=== PATIENT | male | born 1985 | race Caucasian/White ===

== ENCOUNTER 2019-11-12 07:51 | Observation (INO) | payer OTHER, SELFPAY ==
[2019-11-12] VITALS (11 sets, daily range): BP systolic 103–152; BP diastolic 44–92; PULSE 76–106; RESP 14–18; TEMP 36.5–37.1; O2SAT 92–100; BMI 47.7; BMI 47.8
--- NOTE | 2019-11-12 08:03 | CT_ITS ---
We are attempting to reach an attending provider to discuss findings. An addendum with communication details will be sent when the communication is complete. STUDY: CT ABDOMEN AND PELVIS WITHOUT CONTRAST REASON FOR EXAM: Male, 34 years old. Abdominal pain since last night, ? appy RADIATION DOSAGE (If Supplied By Facility): CTDIvol = ( 29.07 ) mGy, DLP = ( 1957.26 ) mGycm TECHNIQUE: Transaxial images were obtained from the dome of the diaphragm to the symphysis pubis without oral contrast, and without intravenous contrast. Sagittal and coronal images were reconstructed. Individualized dose optimization techniques were used for this CT. COMPARISON: None. FINDINGS: Lung bases: Unremarkable. Heart: Unremarkable. Liver: Hepatic steatosis. No focal hepatic lesions given noncontrast technique. Gallbladder/biliary ducts: Unremarkable. Pancreas: Unremarkable. Spleen: Unremarkable. Adrenal glands: Unremarkable. Kidneys/ureters/bladder: Unremarkable. Prostate: Punctate prostate calcifications. Large bowel/small bowel: Unremarkable. Appendix: Acute inflammatory changes at the appendix tip with small appendicolith measuring 5 mm (axial images 85 through 90 series 2). The appendix measures up to 1.1 cm. No perforation. No abscess. Gastroesophageal junction/stomach: Unremarkable. Retroperitoneum/lymph nodes: No intra-abdominal free air. No ascites. No pathologically enlarged lymph nodes. Vascular: Unremarkable. Osseous structures: Minimal degenerative features. No acute process. Subcutaneous/soft tissues: Bilateral fat-containing uncomplicated inguinal hernias. Tiny fat-containing umbilical hernia. No acute process. CT/Abdomen/Pelvis W IV Cont ONLY IMPRESSION: Acute unruptured appendicitis with 5 mm appendicolith Nonemergent findings, as above Electronically Signed: Kobe Fregoso DO at 9:20 EDT Tel , Service support ,
--- NOTE | 2019-11-12 08:04 | ED.DCSUM_ITS ---
History of Present Illness Chief Complaint: Abd Pain Informant: Patient Onset: Yesterday Context: Gradual Onset Timing: Continuous Current Severity: Moderate Maximum Severity: Severe Narrative: The patient is an otherwise healthy 34-year-old male who presents to the emergency department abdominal pain. The patient states his pain began last night. Describes it as bandlike across his lower abdomen. He states it is worsened and is slowly migrated to his right lower quadrant. He denies fever, but does admit to some generalized malaise. He does describe lack of appetite and mild nausea. He thought that if he had a bowel movement it would improve his pain. He states it did not. He is never had pain like this before. He denies any history of prior abdominal surgery. He is otherwise been in his normal state of health. Prior similar symptoms: No Recent Illness/Hospitalization: No Past Medical History - Allergies and Home Meds Allergies/Adverse Reactions: Allergies No Known Allergies Allergy (Verified 11/12/19 07:52) Primary Care Physician: Neema Maynard,Out of [Primary Care Provider] - Prior records reviewed: Yes Past Medical History: None Surgical History: no surgical history Smoking Status: Never smoker Review of Systems General: Reports: Malaise. Denies: Chills, Fever, Sweats Eyes: Denies: Visual changes - bilaterally, Diplopia ENT: Denies: Rhinorrhea, Sore throat Cardiovascular: Denies: Chest pain, Palpitations Respiratory: Denies: Dyspnea, Cough, Dyspnea on exertion Gastrointestinal: Reports: Abdominal pain, Nausea. Denies: Vomiting, Diarrhea, Melena, Hematochezia Genitourinary: Denies: Dysuria, Hematuria, Frequency Musculoskeletal: Denies: Back pain, Extremity Pain Skin: Denies: Rash, Wounds Neurological: Denies: Headache, Weakness, Numbness Physical Exam Vital Signs/Narrative: Vital Signs Temp Pulse Resp BP Pulse Ox 11/12/19 07:53 98.6 F 106 H 17 152/92 H 97 Inital Vital Signs reviewed: Yes General: Well nourished, Well developed, No Acute Distress Head: Normocephalic, Atraumatic Eyes: Perrl, EOMI ENT: Moist mucous membranes, No rhinorrhea Neck: Supple, Nontender Cardiovascular: Regular rate, Regular rhythm, No murmurs Respiratory: No distress, CTA bilaterally, Chest nontender Abdomen: Soft, Nontender, Nondistended, Normal bowel sounds Back: Nontender, Normal Inspection Extremities: Nontender, No edema Skin: Normal color, No rash Neurological: Alert, Oriented x3, Cranial nerves II-XII grossly intact, Normal Strength, Normal Sensation Psychological: Normal affect, Normal Mood Diagnostic/Tx/Re-eval Clinical Impression(s) from Imaging Studies Abdomen/Pelvis CT 11/12/19 08:03 IMPRESSION: Acute unruptured appendicitis with 5 mm appendicolith Nonemergent findings, as above Electronically Signed: Kobe Fregoso DO at 9:20 EDT Tel , Service support , ADDENDUM: 11/12/19926 IMPRESSION: Acute unruptured appendicitis with 5 mm appendicolith Nonemergent findings, as above N.B. : The above information has been verbally conveyed by Kobe Fregoso DO to Tristan Donaldson MD, on 11/12/2019 09:20:24 (ET). Electronically Signed: Kobe Fregoso DO at 9:20 EDT Tel , Service support , Abnormal Lab Results 11/12/19 11/12/19 11/12/19 08:06 08:15 08:15 WBC 14.0 H RBC 5.31 Hgb 15.0 Hct 46.2 MCV 87.0 MCH 28.2 MCHC 32.5 RDW Std Deviation 40.1 RDW Coeff of Javi 12.9 Plt Count 327 MPV 8.7 Immature Gran % (Auto) 0.400 Neut % (Auto) 75.3 H Lymph % (Auto) 17.0 L [place] % (Auto) 6.6 Eos % (Auto) 0.5 Baso % (Auto) 0.2 Absolute Neuts (auto) 10.6 H Absolute Lymphs (auto) 2.38 Nucleated RBC % 0 Sodium 138 Potassium 3.8 Chloride 105 Carbon Dioxide 28.0 Anion Gap 5 BUN 16 Creatinine 0.96 Estim Creat Clear Calc 123.68 Est GFR (MDRD) Af Amer 113 Est GFR (MDRD) Non-Af 94 BUN/Creatinine Ratio 16.6 Glucose 125 H Calcium 9.2 Total Bilirubin 0.30 AST 22 ALT 55 Alkaline Phosphatase 120 H Total Protein 9.0 H Albumin 4.0 Globulin 5.0 H Albumin/Globulin Ratio 0.8 L Urine Color Yellow Urine Clarity Clear Urine pH 5.0 Ur Specific [place] 1.015 Urine Protein Negative Urine Glucose (UA) Normal Urine Ketones Negative Urine Occult Blood Negative Urine Nitrite Negative Urine Bilirubin Negative Urine Urobilinogen Normal Ur Leukocyte Esterase Negative Urine RBC 0 SEEN Urine WBC 0 SEEN Ur Squamous Epith Cells 0 SEEN Urine Bacteria 0 SEEN Urine Mucus 0 SEEN - Medical Decision Making The patient presents with an exam that is concerning for appendicitis. He had diffuse abdominal pain that has now migrated to his right lower quadrant. IV was established. He declined analgesics or antiemetics. Screening labs do show leukocytosis but are otherwise unremarkable. CT does demonstrate uncomplicated acute appendicitis without rupture or abscess. Patient was covered with broad- spectrum antibiotics and was discussed with surgery. Impression 1. Acute appendicitis ED Disposition - Plan for ED Patient: Referrals: [facility] Doctor,Out of [Primary Care Provider] -
[2019-11-12 08:11] LABS: Bacteria 0 SEEN /hpf (None Seen); Mucous, Urine 0 SEEN /hpf (<or=2+); Red Blood Cells-Urine 0 SEEN /hpf (0-5); Squamous Epithelial Cells - UA 0 SEEN /hpf (0-5); White Blood Cells 0 SEEN /hpf (0-5)
[2019-11-12 08:16] LABS: Color, Urine Yellow (Yellow); Glucose, Dipstick Normal (Normal); Ketone-Dipstick Negative (Negative); Leukocyte Esterase-Dipstick Negative /ul (Negative); Nitrite-Dipstick Negative (Negative); Occult Blood-Urine Negative /ul (Negative); Protein-Dipstick Negative (Negative); Specific Gravity, Urine 1.015 (1.002-1.030); Urine Bilirubin Dipstick Negative (Negative); Urine Clarity Clear (Clear); Urine Urobilinogen Normal (Normal)
[2019-11-12] MEDS: 0.9% Normal Saline 1,000 ML 1000 ML IV (08:21)
[2019-11-12 08:27] LABS: Absolute Lymphocyte Count 2.38 X10^3/uL (0.83-4.51); Absolute Neutrophil Count 10.6 X10^3/uL (2.0-7.7); Basophil# 0.03 X10^3/uL; Basophil% 0.2 % (0-1); Eosinophil# 0.07 X10^3/uL; Eosinophils% 0.5 % (0-5); Hematocrit 46.2 % (40-54); Lymphocyte # 2.38 X10^3/ul (4.0); Mean Corp Hgb Conc 32.5 g/dL (32-36); Mean Corpuscular Hgb 28.2 pg (27.0-32.0); Mean Platelet Vol. 8.7 fl (6.2-12.0); Monocyte# 0.92 X10^3/uL; Monocyte% 6.6 % (0-10); NRBC Flagged by Analyzer 0 % (0-5); Neutrophil # 10.56 X10^3/uL (2.7-7.7); Neutrophil % 75.3 % (47-70); Platelet Count 327 K/mm3 (150-450); RBC Distribution Width CV 12.9 % (11.6-14.6); RBC Distribution Width SD 40.1 fl (35.1-43.9); Red Blood Count 5.31 M/mm3 (4.6-6.2)
[2019-11-12 08:46] LABS: ALB/GLOB Ratio 0.8 RATIO (0.9-2.4); AST(SGOT) 22 U/L (15-37); Alanine Aminotransfer ALT/SGPT 55 U/L (16-61); Alkaline Phosphatase 120 U/L (45-117); Anion Gap 5 (5-15); BUN 16 mg/dL (7-18); BUN/Creat Ratio 16.6 RATIO (10-20); Calcium,Total 9.2 mg/dL (8.5-10.1); Chloride 105 mmol/L (98-107); Creatinine, Serum 0.96 mg/dL (0.70-1.30); EST Glomerular Filtration Rate 94 mL/min (>60); Est Glom Filt Rate - Afr Amer 113 mL/min (>60); Estimated Creatinine Clearance 123.68 ml/min; Glucose 125 mg/dL (74-106); Potassium 3.8 mmol/L (3.5-5.1); Sodium Level 138 mmol/L (136-145)
--- NOTE | 2019-11-12 09:46 | EKG12_ITS ---
Test Reason : Blood Pressure : / mmHG Vent. Rate : 094 BPM Atrial Rate : 094 BPM P-R Int : 172 ms QRS Dur : 102 ms QT Int : 368 ms P-R-T Axes : 021 052 030 degrees QTc Int : 460 ms Normal sinus rhythm Normal ECG Confirmed by MARA LUNA MD ([id number]), editor news ELLIOTT ROYAL ([id number]) on 11/16/2019 3:24:10 PM Referred By: LONNY Confirmed By:MARA LUNA MD
--- NOTE | 2019-11-12 10:40 | PCM.HP.STD ---
Problem List (1) Appendicitis Status: Acute Qualifiers: Appendicitis type: acute appendicitis Acute appendicitis type: with localized peritonitis Appendicitis gangrene presence: unspecified whether gangrene present Appendicitis perforation presence: without perforation Appendicitis abscess presence: without abscess Qualified Code(s): K35.30 - Acute appendicitis with localized peritonitis, without perforation or gangrene History of Present Illness Date of Admission: 11/12/19 The patient is an otherwise healthy 34-year-old male who presents to the emergency department abdominal pain. The patient states his pain began last night. Describes it as bandlike across his lower abdomen. He states it is worsened and is slowly migrated to his right lower quadrant. He denies fever, but does admit to some generalized malaise. He does describe lack of appetite and mild nausea. He thought that if he had a bowel movement it would improve his pain. He states it did not. He is never had pain like this before. He denies any history of prior abdominal surgery. He is otherwise been in his normal state of health. CT scan of the abdomen showed: Appendix: Acute inflammatory changes at the appendix tip with small appendicolith measuring 5 mm (axial images 85 through 90 series 2). The appendix measures up to 1.1 cm. No perforation. No abscess. Being consulted for evaluation and treatment of acute appendicitis. Past Medical History Allergies No Known Allergies Allergy (Verified 11/12/19 07:52) Home Medications: Ambulatory Orders Medication Instructions Recorded Acyclovir 200 mg PO DAILY 11/12/19 Emtricitabine/Tenofovir (Tdf) 1 ea PO DAILY 11/12/19 [Truvada 100 mg-150 mg Tablet] Surgical History: no surgical history Smoking Status: Never smoker Tobacco Use: Non-smoker - *Family History Maternal History Items: No pertinent history Review of Systems Constitutional: Reports: Anorexia HEENT: Denies: Dysphasia, Ear Pain, Eye Pain, Head Aches, Hearing Changes, Sore Throat Cardiovascular: Denies: Chest Pain, Chest Pressure, Chest Tightness, Palpitations Respiratory: Denies: Cough, Hemoptysis, Shortness of breath at rest, Shortness of breath upon exertion, Wheezing Gastrointestinal: Reports: Abdominal Pain VTE Information - Inpt Only VTE Present on Admission: No VTE Mechan Device Prophylaxis: SCD's VTE Pharm Prophylaxis ordered?: No Reason prophylaxis not ordered:: Treatment Not Indicated Patient Problems: Active and Suspected Problems Appendicitis (Acute) - Physical Exam Vitals/I&O's: Vital Signs Temp Pulse Resp BP Pulse Ox 98.6 F 81 16 139/67 H 98 11/12/19 07:53 11/12/19 10:03 11/12/19 10:03 11/12/19 10:03 11/12/19 10:03 Oxygen Delivery Method Room Air Weight: 372 lb 2.244 oz Body Mass Index (BMI) 47.7 Intake and Output for Last 24 Hours 11/10/19 11/11/19 11/12/19 23:59 23:59 23:59 Intake Total 1000 / 1000 Balance 1000 / 1000 General: Alert, Oriented x3 Neck: Supple, No JVD Lungs: Clear to auscultation Cardiovascular: Regular rate, Regular Rhythm, No murmurs Abdomen: Soft, Tender - Patient has tenderness at McBurney's point with a positive Rovsing sign Extremities: No clubbing, No cyanosis, No edema Laboratory Results 11/12/19 08:06: Urine Color Yellow, Urine Clarity Clear, Urine pH 5.0, Ur Specific [place] 1.015, Urine Protein Negative, Urine Glucose (UA) Normal, Urine Ketones Negative, Urine Occult Blood Negative, Urine Nitrite Negative, Urine Bilirubin Negative, Urine Urobilinogen Normal, Ur Leukocyte Esterase Negative, Urine RBC 0 SEEN, Urine WBC 0 SEEN, Ur Squamous Epith Cells 0 SEEN, Urine Bacteria 0 SEEN, Urine Mucus 0 SEEN 11/12/19 08:15: WBC 14.0 H, RBC 5.31, Hgb 15.0, Hct 46.2, MCV 87.0, MCH 28.2, MCHC 32.5, RDW Std Deviation 40.1, RDW Coeff of Javi 12.9, Plt Count 327, MPV 8.7, Immature Gran % (Auto) 0.400, Neut % (Auto) 75.3 H, Lymph % (Auto) 17.0 L, [place] % (Auto) 6.6, Eos % (Auto) 0.5, Baso % (Auto) 0.2, Absolute Neuts (auto) 10.6 H, Absolute Lymphs (auto) 2.38, Nucleated RBC % 0 11/12/19 08:15: Sodium 138, Potassium 3.8, Chloride 105, Carbon Dioxide 28.0, Anion Gap 5, BUN 16, Creatinine 0.96, Estim Creat Clear Calc 123.68, Est GFR (MDRD) Af Amer 113, Est GFR (MDRD) Non-Af 94, BUN/Creatinine Ratio 16.6, Glucose 125 H, Calcium 9.2, Total Bilirubin 0.30, AST 22, ALT 55, Alkaline Phosphatase 120 H, Total Protein 9.0 H, Albumin 4.0, Globulin 5.0 H, Albumin/Globulin Ratio 0.8 L Assessment/Plan All Active Problems Appendicitis (Acute) I plan is to perform a laparoscopic appendectomy on the patient. Risk benefits have been reviewed with him to include bleeding infection and possible recurrence of an abscess formation which could take up to 10 days. He also understands it there is a small possibility of injury to surrounding structures. All questions asked were answered and he is willing to proceed. Office Visits / Consults: [id number] IP Consult L4 - Modifier 57
[2019-11-12] MEDS: 0.9% Normal Saline 1,000 ML 100 ML IV ×2 (12:53→16:11)
--- NOTE | 2019-11-12 13:00 | APP_PTH ---
PATIENT: DAVID SMILEY LOC: MS3 U#:[id number] AGE/SX: 34/M ROOM: UT318 RE11/12/[address]: Dr. Max Draper MD : [id number] BED: 1 DIS: 11/13/2019 SPEC #: [id number] RECD: 11/16/19 08:01 STATUS: DEYVI REZak #: [id number] EDVIN: 11/12/19 13:[address]: Max Draper DEPT: SURGICAL PATHOLOGY RECD BY: Mario Alberto Romeo ENTERED: 11/16/19 09:01 SP TYPE: APPENDIX OT DR: No Primary Care Phys Tissues: Appendix, NOS Procedures: Surgery Specimen Level III HEADER OPERATION: Laparoscopic appendectomy PRE-OP DIAGNOSIS: Appendicitis TISSUE SUBMITTED: Appendix MICROSCOPIC DIAGNOSIS Appendix, appendectomy: Acute appendicitis and periappendicitis. SJ:danna 11/17/19 MICROSCOPIC DESCRIPTION Slides are reviewed. GROSS DESCRIPTION Received is one container labeled with the patient's name and designated appendix. The specimen consists of an L-shaped appendix measuring 9.5 cm in length and up to 1 cm in diameter. The attached periappendiceal adipose tissue measures up to 3 cm in width. The serosal surface is covered focally with cohn, purulent exudate. No obvious perforation is identified. The lumen contains fecal material. No fecalith is identified. [employer] sections are submitted in one cassette. / SJ:danna 11/16/19 TC:2 [facility]: [id number]
--- NOTE | 2019-11-12 13:18 | PCM.OPRPT ---
Problem List (1) Appendicitis Status: Acute Qualifiers: Appendicitis type: acute appendicitis Acute appendicitis type: with localized peritonitis Appendicitis gangrene presence: unspecified whether gangrene present Appendicitis perforation presence: without perforation Appendicitis abscess presence: without abscess Qualified Code(s): K35.30 - Acute appendicitis with localized peritonitis, without perforation or gangrene Report of Operation Date of Procedure: 11/12/19 Pre-Operative Diagnosis: Acute appendicitis Post-Operative Diagnosis: Same Surgery/Procedure Performed:: Laparoscopic appendectomy Type of Anesthesia:: General Anesthesiologist: Mehdi Schuler Specimen's removed: Appendix Estimated Blood Loss (mL): < 25 cc Description of Procedure: Patient was brought into the operating room and placed in the supine position. Under excellent general trach intubation local was injected infraumbilically and dissection was carried down to the fascia the fascia was grasped with Danii varies needle was placed inside the abdomen the abdomen was insufflated 15 torr a 10/12 trocar was placed without difficulty. Patient was placed in the headdown position rotated to the left suprapubic #5 trochars placed in the left lower quadrant #5 trocar was placed over these under direct visualization without injury to underlying structures patient was noted to have acute appendicitis there was purulent material but there was no rupture. I took the small intestine off of the right pelvic wall so that I could rotate it medially and gain better access to the base of the appendix. I came down on the appendix with the Enseal device taking down the mesoappendix without difficulty I transected the base of the appendix with a 45 linear cutter placed a specimen in a specimen bag and delivered through the umbilical port without difficulty. I used spot cautery on the base of the appendix stump good pneumostasis was noted I irrigated out the pelvis with 1 L of irrigation. I retrieved all this irrigation that I could. I deflated the abdomen. Remove the trochars. Closed the fascia the umbilical port with a [id number] stitch of 0 Vicryl. Skin incisions were closed with subcuticular stitches of 4-0 Monocryl. Steri-Strips were applied sterile dressings were applied and the patient tolerated the procedure well. - Admit VTE Documentation VTE Present on Admission: No VTE Mechan Device Prophylaxis: SCD's VTE Pharm Prophylaxis ordered?: No Reason prophylaxis not ordered:: Treatment Not Indicated [id number]: [id number] Laparoscopy appendectomy
[2019-11-12] MEDS: Ondansetron 4 MG/2 ML Vial IV (18:30)
[2019-11-12] MEDS: oxyCODONE 5 MG Tablet 10 MG PO ×2 (18:30→22:41)
[2019-11-12] MEDS: 0.9% Saline Lock 10 ML Syringe IV (18:31)
[2019-11-13 03:29] VITALS: BP 121/63; PULSE 82; RESP 16; TEMP 36.9; O2SAT 96
[2019-11-13] MEDS: oxyCODONE 5 MG Tablet 10 MG PO ×2 (03:36→07:36)
[2019-11-13 09:04] VITALS: BP 115/63; PULSE 83; RESP 18; TEMP 36.8; O2SAT 94
--- NOTE | 2019-11-13 10:31 | PCM.DC.APPY ---
Discharge Diet: Light diet - advance as tolerated - if you have questions about your diet instructions, please talk to you doctor. Discharge Activity: May Not Drive - for 3-5 days or while taking narcotic pain meds. May shower in (days): 1 Call your doctor if your incision/area has: Continuous Slow Oozing, Sudden Increased Bleeding, Increased Pain/ Swelling, Increased Redness, Foul Smelling Discharge Call your doctor if you observe: Fever of 101 or Higher Suture Line Care: Avoid Pulling/Pushing, Avoid Pinching/Bending Additional Dressing/Incision Instructions:: Keep dressing clean and dry. Change or remove dressing in 2 days. Leave steri strips for 1 week. May protect with a gauze bandaid. Medications to take at Discharge Acyclovir 200 mg PO DAILY 11/12/19 Emtricitabine/Tenofovir (Tdf) [Truvada 100 mg-150 mg Tablet] 1 ea PO DAILY 11/12/19 Oxycodone HCl/Acetaminophen [Percocet 5/325] 1 - 2 tab PO Q4H PRN PRN 6 Days #30 tab 11/12/19 Allergies/Adverse Reactions: Allergies No Known Allergies Allergy (Verified 11/12/19 07:52) The following prescriptions were given: Oxycodone HCl/Acetaminophen [Percocet 5/325] 1 - 2 tab PO Q4H PRN PRN 6 Days #30 tab PRN Reason: Pain Transmission Status: Received by ALBERTA CHEEK[address] [place] [address] Primary Care Physician: [facility] Doctor,Out of [NON-STAFF] - Test Results: Test results from this visit will be discussed in further detail at your follow-up appointment, if applicable. Please Follow Up With: Kathie Willett PA-C - [phone] When: Call to make a follow up appointment with your doctor in 1 week. When: Phone follow-up is acceptable.
== END 2019-11-13 10:32 | disposition home or self-care (01) ==
LOC: ED 09:51 → SDC 09:54 → ACINP 09:55 → MS3 14:14 → SDC 16:03 → MS3 16:03
PROVIDERS: Admitting Provider Surgery; Emergency Provider Emergency Medicine; Visit Provider Surgery
PROC: 0DTJ4ZZ Resection of Appendix, Percutaneous Endoscopic Approach (ICD-10-PCS; CPT 44970; principal; 2019-11-12 12:40)
DX: K35.30 Acute appendicitis with localized peritonitis, without perforation or gangrene (principal)
CPT/HCPCS: 00840; 44970; 74177; 80053; 81001; 85025; 87635; 88304; 93005; 96361; 96365; 96366; 96375; 99218; 99284; J7030; Q9967; A4216; C1760; G0378; J2405; U0004

== ENCOUNTER → 2022-02-28 | Outpatient (CLI) | payer OTHER, SELFPAY ==
--- NOTE | 2022-02-28 16:12 | RAD_ITS ---
HISTORY: eval elbow distal biceps rupture. TECHNIQUE: XR Elbow Min 3 Views. COMPARISON: None. FINDINGS: BONES : No acute fracture identified. Mineralization unremarkable. JOINTS: No dislocation. Joint spaces maintained. SOFT TISSUES: Ventral soft tissue swelling. RAD/Elbow min 3 Views IMPRESSION: No acute fracture or dislocation identified in the left elbow. Anterior soft tissue swelling, compatible with the history of biceps injury. Electronically Signed: Antonia Johnson MD at 8:32 EDT ,
== END | disposition home or self-care (01) ==
PROVIDERS: Referring Provider Orthopaedic Surgery Sports Medicine; Visit Provider Orthopaedic Surgery Sports Medicine
DX: S46.212A Strain of muscle, fascia and tendon of other parts of biceps, left arm, initial encounter (principal)
CPT/HCPCS: 73080

== ENCOUNTER → 2022-03-09 | Outpatient (CLI) | payer OTHER, SELFPAY ==
--- NOTE | 2022-03-09 08:35 | MRI_ITS ---
STUDY: MRI LEFT ELBOW REASON FOR EXAM: Male, 36 years old. 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 SWELLING ANTERIORLY SUPERIOR TO ELBOW JOINT. XR ELBOW 02/28/22 TECHNIQUE: Standardized fat and water weighted pulse sequences were obtained in all 3 orthogonal planes. COMPARISON: Left elbow x-ray dated February 28, 2022 FINDINGS: There is a complete rupture tear of the biceps tendon which is retracted from its radial insertion site up to the musculotendinous junction where there is also moderate tearing of the fibers of the musculotendinous junction involving a 4.96 cm region and resulting in a focal hematoma at the site of injury. A small elbow joint effusion is also present. No bone marrow edema or osteochondral defects or occult fractures are seen. Normal radio-capitellum articulation. Normal radial collateral ligamentous complex. Normal common extensor tendon. Normal ulnotrochlear articulation. Normal ulnar collateral ligamentous complex. Normal common flexor tendon. The cubital tunnel is normal, with a normal ulnar nerve. Normal brachialis musculotendinous insertion. Normal triceps tendon and teno-osseous insertion. Normal olecranon process. The visualized distal humerus, proximal radius, and ulna are normal. The visualized muscles of the distal arm and proximal forearm are normal. The remaining soft tissue structures are unremarkable. MRI/Upper Ext Joint Only(Routine) IMPRESSION: 1. There is a complete rupture tear of the biceps tendon which is retracted from its radial insertion site up to the musculotendinous junction where there is also moderate tearing of the fibers of the musculotendinous junction involving a 4.96 cm region and resulting in a focal hematoma at the site of injury. Electronically Signed: Roberth Holland MD at 11:33 EDT ,
== END | disposition home or self-care (01) ==
LOC: MRI 08:01
PROVIDERS: Visit Provider Orthopaedic Surgery Sports Medicine
DX: S46.212A Strain of muscle, fascia and tendon of other parts of biceps, left arm, initial encounter (principal)
CPT/HCPCS: 73221

== ENCOUNTER 2022-03-13 07:46 | Day surgery (SDC) | payer OTHER, SELFPAY ==
[2022-03-13] VITALS (7 sets, daily range): BP systolic 129–145; BP diastolic 77–90; PULSE 79–97; RESP 16–18; TEMP 36.4–36.6; O2SAT 94–100; BMI 53.0
[2022-03-13] MEDS: Lactated Ringers 1,000 ML 15 ML IV (08:18)
--- NOTE | 2022-03-13 09:53 | PCM.HP.STD ---
HPI - General HPI Narrative DAVID SMILEY, is a 36 M who presents for left biceps repair. No changes to his health. He is obese. This precludes him from having a block. He understands the pros and cons risks and benefits of proceeding and I marked the left upper extremity. He understood had no questions or concerns Intake Intake Visit Reasons:?Left arm Allergies No Known Allergies Allergy (Verified 03/11/22 15:28) Medications acyclovir 200 mg capsule 200 mg PO DAILY 11/12/19 [History Confirmed 03/11/22] emtricitabine 100 mg-tenofovir disoproxil fumarate 150 mg tablet 1 tab PO DAILY 02/28/22 [History Confirmed 03/11/22] PFSH Medical History? Rupture of left distal biceps tendon Social History? Smoking Status:? Never smoker HPI Left arm Details: Parts of this documentation were recorded by a scribe, this documentation accurately reflects the service provided and the decisions made by me, Dr. Jon Ortega MD 03/11/22 1303. DAVID SMILEY is a 36 year old M here today for follow-up on left elbow MRI to assess for distal biceps rupture.? The pain and swelling are subsiding.? He did try some physically demanding activity with the left elbow and felt like there was some diminishment in the strength and easy fatigability. Ortho Exam General General: Yes no acute distress and Yes well groomed Neurologic: Yes alert and Yes oriented x3 Psychologic: Yes reasonable and appropriate and Yes rude/confrontational Left Elbow Skin/Wound: Yes CDI, Yes eccymosis, No erythema and Yes Swelling Contralateral Normal: Yes Test: No Thenar Atrophy ROM: Yes Flexion 0-140, Supination 0-90 and Pronation 0-80 Sensation: Radial: I, Ulnar: I and Median: I Motor: Elbow Extension: 5, Elbow Flexion: 4, EPL: 5, FDP-2: 5 and 1st Dorsal Interosseous: 5 ELBOW: He has the obvious stigmata of a distal biceps rupture on the left side with medial sided bruising change in the contour of the distal biceps consistent with a Elliot sign lack of rise and fall with pronation and supination of the hand and I am unable to hook the tendon distally whereas on the right side this is normal.? He also has diminished strength in supination. Supplemental Info MR#:? [id number] Acct: [id number] Name:? DAVID SMILEY Rep #: [id number] :?? 1985 M 36 ? From:? ? Roberth Holland MD PCP: Care Physician,No Primary ? Status: REG CLI Study: Upper Ext? Joint Only(Routine) ? Date of Exam: 03/09/22 Exam# [id number] ? Ordering Dr:? Jon Ortega MD STUDY: ? MRI LEFT ELBOW REASON FOR EXAM: ? Male, 36 years old.? 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 SWELLING ANTERIORLY SUPERIOR TO ELBOW JOINT. XR ELBOW 02/28/22 TECHNIQUE: ? Standardized fat and water weighted pulse sequences were obtained in all 3 orthogonal planes. COMPARISON: ? Left elbow x-ray dated February 28, 2022 FINDINGS: There is a complete rupture tear of the biceps tendon which is retracted from its radial insertion site up to the musculotendinous junction where there is also moderate tearing of the fibers of the musculotendinous junction involving a 4.96 cm region and resulting in a focal hematoma at the site of injury. A small elbow joint effusion is also present.? No bone marrow edema or osteochondral defects or occult fractures are seen. Normal radio-capitellum articulation.? Normal radial collateral ligamentous complex.? Normal common extensor tendon. Normal ulnotrochlear articulation.? Normal ulnar collateral ligamentous complex.? Normal common flexor tendon.? The cubital tunnel is normal, with a normal ulnar nerve. Normal brachialis musculotendinous insertion. Normal triceps tendon and teno-osseous insertion.? Normal olecranon process. The visualized distal humerus, proximal radius, and ulna are normal.? The visualized muscles of the distal arm and proximal forearm are normal. The remaining soft tissue structures are unremarkable. MRI/Upper Ext? Joint Only(Routine) IMPRESSION: ? 1.? There is a complete rupture tear of the biceps tendon which is retracted from its radial insertion site up to the musculotendinous junction where there is also moderate tearing of the fibers of the musculotendinous junction involving a 4.96 cm region and resulting in a focal hematoma at the site of injury. ? Electronically Signed: Roberth Holland MD at 11:33 EDT Reading Location ID and State: [facility] / [place] , Service support? , MRI was personally reviewed by myself and I agree with the interpretation that there is a complete tear of the distal biceps attachment at the radial tuberosity. Coding Level of Care Code Off vis,new,level 4 Diagnoses Rupture of left distal biceps tendon? S46.212A Time Spent (min) 30 Assessment and Plan Assessment and Plan (1) Rupture of left distal biceps tendon: ?Status:?Acute ?Plan: 36-year-old man with a left distal biceps tear.? His options would be doing nothing, rest ice anti-inflammatories physical therapy return to normal activities as well as surgical repair.? We had discussed the pros and cons risks and benefits of this in the past nonoperative care typically in the literature would result in decrease in 10% flexion strength and 30% supination strength.? That being said surgery has its own set of risks as well.? The patient does have obesity and this is elective major surgery with identified risk factors. Pros and cons risks and benefits were discussed with the patient including but not limited to infection, pain, stiffness, bleeding, damage to surrounding structures, neurovascular injury, recurrence or retear, failure or wear of hardware or fixation, instability, fracture, deep vein thrombosis and pulmonary embolism, anesthetic risks, patient dissatisfaction, need for further surgery and other risks.? Patient understood and wished to proceed with surgery, and signed the informed consent documentation. I will try to get this on for as early as possible which would be Friday of this week. [facility] Medical History (Updated 03/12/22 @ 08:44 by Anisa Alatorre) Hypertension Marijuana use Migraine headache Non-smoker Rupture of left distal biceps tendon Home Medications acyclovir 200 mg capsule 200 mg PO DAILY 11/12/19 [History Last Taken Unknown] Allergy/AdvReac Type Severity Reaction Status Date / Time No Known Allergies Allergy Verified 03/13/22 08:00 Surgical History (Updated 03/12/22 @ 08:44 by Anisa Alatorre) History of appendectomy Social History Smoking Status: Never smoker Vital Signs Vital Signs Vital Signs: 03/13/22 08:01 03/13/22 08:01 Temperature 97.5 F L Temperature Source Temporal Pulse Rate 97 Respiratory Rate 16 Respiratory Pattern Normal Blood Pressure 141/77 H Blood Pressure Mean 98 Blood Pressure Source Monitor Blood Pressure Position Semi-Fowlers Blood Pressure Location Left Forearm Pulse Ox 99 Oxygen Delivery Method Room Air Weight Weight: 401 lb 14.443 oz Body Mass Index (BMI) 53.0
--- NOTE | 2022-03-13 11:00 | RAD_ITS ---
INDICATION: DISTAL BICEPS REPAIR EXAMINATION/TECHNIQUE: X-RAY - LEFT XR Elbow 2 Views COMPARISON: 02/28/2022. FINDINGS: Intraoperative fluoroscopy. Single spot fluoroscopic view obtained intraoperatively for biceps tendon repair. No radiologist was present for the procedure, please refer to operative report for details. RAD/Elbow 2 Views IMPRESSION: Please refer to operative report for details. Electronically Signed: John Valencia MD at 13:09 EDT ,
--- NOTE | 2022-03-13 12:20 | PCM.OPRPT ---
Problems Associated Problem List Diagnoses (1) Rupture of left distal biceps tendon: Report of Operation Date of Procedure: 03/13/22 Pre-Operative Diagnosis: Left distal biceps tear Post-Operative Diagnosis: Left distal biceps tear Surgery/Procedure Performed:: Left distal biceps repair Description of Surgical Findings:: complete retracted distal biceps tear Surgeon: Jon Ortega Type of Anesthesia: General and Local Anesthesiologist: Kobe Krueger Estimated Blood Loss (mL): 20 Description of Procedure: Patient was brought to the operating room theater. They were placed supine on the operating room table. 3 g of IV Ancef was administered prior to the start of the case. General anesthesia was induced. All bony prominences appropriately padded. SCDs on the legs. Arm table to the patient's left side. Bed turned 90 degrees. Left upper extremity prepped and draped in the usual sterile fashion with chlorhexidine-based prep solution allowing over 3 minutes drying time prior to draping. Preoperative timeout performed to confirm the site patient in the surgery. I began by exsanguinating the limb with a sterile Esmarch. I elevated the limb and inflated the tourniquet to 250 mmHg. I made a transverse incision on the volar aspect of the proximal forearm 2 fingerbreadths below the level of the elbow crease. He is 5 cc of quarter percent Marcaine for local anesthetic. I dissected down through skin and subcutaneous tissue achieve meticulous hemostasis. The biceps was quite proximally retracted at least 5 cm. I released quite a bit of scar tissue. Releasing scar tissue and identification of the biceps tendon took longer than his typical due to the over 3 weeks old nature of this tear I took about 40 minutes for me to identify the tendon. I cleaned up the tendon and excised any clots hematoma and scar tissue. I whipstitch the tendon using the Arthrex straight needle for 5 throws locking it distally and cutting at the splice. Next I turned my attention distally. Again there was quite a bit of scar tissue and adhesions to work around. Identified the radial tuberosity both by direct palpation visualization as well as through intraoperative x-rays. I fully supinated the forearm. I cleared away a small amount of soft tissue from the radial tuberosity. I drilled a 2.9 mm pin bicortically. I did attempt to place the Arthrex fiber tack suture anchor but this pulled out therefore I switched to the Arthrex distal biceps metal button. Completed the far cortex now with the 3.2 mm spade tip drill. I passed the sutures in alternating fashion through the button and then deliver the button through to the far cortex. Just prior, I reamed the near cortex with a size 8 mm reamer after sizing the tendon appropriately. I thoroughly irrigated any bone dust and debris. Next I delivered the tendon into the bony tunnel. This was quite tight and I had to flex the arm up release 75 degrees to get the tendon into the tunnel despite releasing quite a bit of scar tissue proximally. In the end I did have to repair this in flexion at about 75 degrees to take off tension from the repair. Tendon was fully delivered into the tunnel buried and docked. I then used a Silvestre needle to pass one of the suture limbs back through the tendon from the undersurface to the superior surface and then 5 alternating half hitches with this sutures cut short. I then used a Arthrex bio interference screw 7 mm x 10 mm this achieved quite good purchase with squeak audible. I again thoroughly irrigated the wound. Repair was stable and solid. Arm kept in about 75 degrees of flexion. Tourniquet let down meticulous hemostasis achieved. Subcutaneous tissue closed with 3-0 Vicryl and 3-0 Monocryl. Skin cleaned with wet and dry dressing followed by application of Steri-Strips Xeroform gauze abdominal pad dressing sterile cast padding and a prefabricated posterior fiberglass splint with the arm at about 90 degrees of flexion and a sling for the left upper extremity. Hand was warm and well-perfused after the case. Patient was woken up from general anesthetic transferred off the operating room table and taken to postanesthetic care unit in stable condition. All sponge needle instrument counts were correct no complications. Plan to the patient is to be in the splint for 2 weeks and follow-up in the office at that time. Appropriate narcotic counseling given. Bill distal biceps repair and modifier 22. Complications none Admit VTE Documentation VTE Present on Admission: No VTE Mechan Device Prophylaxis: SCD's Reason prophylaxis not ordered:: Treatment Not Indicated Procedures Musculoskeletal [id number]: Other Procedure See Report
--- NOTE | 2022-03-13 12:29 | EX.PCM.DISCH ---
Discharge Instructions Diet Discharge Diet: No restrictions Activity Discharge Activity: May Drive and May Not Shower Keep extremity elevated above heart level: Left Arm Dressing / Incision Call your doctor if your incision/area has: Continuous Slow Oozing, Sudden Increased Bleeding, Increased Pain/ Swelling, Increased Redness, Foul Smelling Discharge and Swelling at the incision site Change Dressing in: leave in place till F/U Cleanse incision/area with: Do not get Incision Wet Follow Up Care Please Follow Up With: Jon Ortega MD When: 2 weeks Test Results: Test results from this visit will be discussed in further detail at your follow-up appointment, if applicable. Discharge Plan Admission Primary Reason for Your Visit: left distal biceps repair Attending Provider: Jon Ortega Primary Care Provider: Care Physician,Meera Primary Discharge Orders/Prescriptions Prescriptions: New oxycodone-acetaminophen [Endocet] 5-325 mg tablet 1 tab PO Q4H MDD 6 PRN (Reason: pain) 5 Days Qty: 30 0RF No Action acyclovir 200 MG capsule 200 mg PO DAILY Referrals / Follow Up: Jon Ortega MD [Med Staff - Active Staff] - Care Physician,No Primary [Primary Care Provider] - Disposition Disposition (needs filled in before D/C Order can be placed): Home, Self Care
--- NOTE | 2022-03-13 12:32 | DCINST_ITS ---
Discharge Instructions Diet Discharge Diet: No restrictions Activity Discharge Activity: May Not Drive and May Not Shower Keep extremity elevated above heart level: Left Arm Dressing / Incision Call your doctor if your incision/area has: Continuous Slow Oozing, Sudden Increased Bleeding, Increased Pain/ Swelling, Increased Redness, Foul Smelling Discharge and Swelling at the incision site Change Dressing in: leave in place till F/U Remove Dressing in: leave in place till F/U Cleanse incision/area with: Do not get Incision Wet Follow Up Care Please Follow Up With: Jon Ortega MD When: 2 weeks Test Results: Test results from this visit will be discussed in further detail at your follow- up appointment, if applicable. Discharge Plan Admission Primary Reason for Your Visit: left distal biceps repair Attending Provider: Jon Ortega Primary Care Provider: Care Physician,Meera Primary Discharge Orders/Prescriptions Prescriptions: New oxycodone-acetaminophen [Endocet] 5-325 mg tablet 1 tab PO Q4H MDD 6 PRN (Reason: pain) 5 Days Qty: 30 0RF No Action acyclovir 200 MG capsule 200 mg PO DAILY Referrals / Follow Up: Jon Ortega MD [Med Staff - Active Staff] - Care Physician,No Primary [Primary Care Provider] - Disposition Disposition (needs filled in before D/C Order can be placed): Home, Self Care
[2022-03-13] MEDS: oxyCODONE 5 MG Tablet PO (13:59)
[2022-03-13] MEDS: Acetaminophen 325 MG Tablet PO (13:59)
== END 2022-03-13 15:01 | disposition home or self-care (01) ==
LOC: SDC 07:47 → AC 07:49
PROVIDERS: Referring Provider Orthopaedic Surgery Sports Medicine; Visit Provider Orthopaedic Surgery Sports Medicine
PROC: (CPT 24341; principal; 2022-03-13 09:20)
DX: S46.212A Strain of muscle, fascia and tendon of other parts of biceps, left arm, initial encounter (principal); Z68.43 Body mass index [BMI] 50.0-59.9, adult; E66.9 Obesity, unspecified; I10 Essential (primary) hypertension; F12.90 Cannabis use, unspecified, uncomplicated
CPT/HCPCS: 24341; 01714; 73070; 76000; C1713; J7120; J2405

== ENCOUNTER 2022-04-03 15:03 | Outpatient (RCR) | payer OTHER, SELFPAY ==
--- NOTE | 2022-04-22 10:38 | HP.PTEVAL_ITS ---
Patient's Visit Information DAVID SMILEY is a 36 year old M referred to Physical Therapy by Dr. Jon Ortega MD with a diagnosis of L distal biceps rupture with surgical repair.. Date of Evaluation: 04/03/22 Physical Therapist: Ramakrishna Garcia DPT - Visit Plan Frequency: 2x /Week Duration: 3 Months Plan: Start with passive and assisted ROM only. Week2-4: 75-130deg. Progress extension by 10deg per week with goal of full ROM by week8. Then begin strengthening then - Subjective Pt. is here today for his initial evaluation with diagnosis of L distal biceps rupture with surgical repair. DOS:03/13/22. Pt. reports overall doing well. Pt. is wearing his brace as prescribed. Pt. has refrained from carrying objects. Pt. has been doing some light ROM at home. Pt. is sleeping well. NO major issues noted. NO N/T, no chills, no fever. Pt. - Pain L UE Pain Intensity (Out of 10): 0 Pain Intensity Range: 0, 3 - Objective POSTURE: Pt. has normal posture in stance. Pt. has L UE in guarded posture. Normal shoulder heights noted. PALPATION: Pt. has tenderness at proximal forearm, not much pain else where. NEURO: normal sensation to light and sharp touch. ROM: L elbow: 75-130deg. No end feel felt, but no over pressure applied. MMT: RUE: 5/5 throughout. LUE not tested due to surgery. - Balance/Special Test Scores Quick DASH Score: 50.0000 - Goals Goal 1:: LTG: Pt. to be I with HEP. Goal Time Frame: 4-6 Weeks Goal 2:: LTG: Pt. to have full L elbow ROM allowing for increased ability to complete all daily activities. Goal Time Frame: 6 weeks Goal 3:: LTG: Pt. to have increased L UE strength to 5/5 without issues Goal Time Frame: 8-12 Weeks Goal 4:: LTG: Pt. to complete all work related activities without increase in elbow pain. Goal Time Frame: 8-12 Weeks Goal 5:: STG: Pt. to have L elbow extension to -35deg progressing towards full extension. Goal Time Frame: 2-4 Weeks - Rehabilitation Potential Physical Therapy Diagnosis: Pt. has signs and symptoms consistent with L distal biceps rupture with surgical repair. DOS: 03/13/22. Pt. would benefit from PT to address his decreased ROM and eventually strengthening once safely able. Rehabilitation Potential: Excellent - Anticipated Interventions Patient/Client Instruction: Educate patient on: Condition, Plan of Care, Risk Factors, Benefits of Fitness Program For the Purpose of:: To improve decision making, To facilitate caregiver knowledge, To improve self management, To prevent re-injury, To improve ability to perform tasks related to life management, To improve tolerance to ADL's Therapeutic Exercise to Include: Strength training, Power training, Postural training, Flexibilty training, Gait and locomotor training For the Purpose of:: To decrease pain, To increase ROM, To improve nutrient delivery to tissue, To increase oxygenation perfusion, To improve muscle performance and motor function, To improve ability to perform ADL's, To improve health of tissue, To decrease soft tissue restriction, To increase flexibility/ROM Manual Therapy Techniques to Include: Scar massage, Passive ROM For the Purpose of:: To decrease pain, To decrease swelling/inflammation, To increase ROM Thank you for the opportunity to evaluate your patient. For Medicare and Medicare HMO plans, please review the plan of care and approve it. It will need to be FAXED BACK to us at [phone] for Medicare purposes. For Medicare only, by signing this I certify the plan of care. Please let me know if there are questions or concerns regarding this plan of care. Physician Signature: Date:
== END 2022-04-03 19:00 | disposition home or self-care (01) ==
LOC: PT 15:03
PROVIDERS: Referring Provider Orthopaedic Surgery Sports Medicine; Visit Provider Orthopaedic Surgery Sports Medicine
DX: S46.212D Strain of muscle, fascia and tendon of other parts of biceps, left arm, subsequent encounter (principal); X58.XXXD Exposure to other specified factors, subsequent encounter
CPT/HCPCS: 97161